=== PATIENT | male | born 1980 | race Caucasian/White ===

== ENCOUNTER 2018-06-20 23:19 | Emergency (ER) | payer OTHER, SELFPAY ==
[~2018-06-20] VITALS: Ht 188 cm; Wt 90.9 kg
[2018-06-20 23:29] VITALS: BP 124/60
[2018-06-20] MEDS ORDERED: CEPHALEXIN 500 MG CAP PO ONE (23:45)
[2018-06-20] MEDS ORDERED: NEOSPORIN OINT 0.9 GM PKT (FLOOR STOCK) TOP ONE (23:45)
[2018-06-21] MEDS ORDERED: KEFL500C17 PO (00:09)
--- NOTE | 2018-06-21 08:02 | REP ---
LEFT HAND, FOUR VIEW: HISTORY: 3rd and 4th digit injury. There is no acute fracture or dislocation. The joint spaces are normal in appearance. IMPRESSION: There is no acute fracture or dislocation. Electronically Signed by Jeronimo Goodrich MD 06/21/2018 08:18 A
== END 2018-06-21 00:15 | disposition home or self-care (01) ==
LOC: M ED 23:19
DX: S60.413A Abrasion of left middle finger, initial encounter (principal); S60.415A Abrasion of left ring finger, initial encounter; V86.64XA Passenger of military vehicle injured in nontraffic accident, initial encounter; Y92.9 Unspecified place or not applicable; Y93.9 Activity, unspecified; Y99.9 Unspecified external cause status; R51 Headache